=== PATIENT | female | born 1995 | race Caucasian/White ===

== ENCOUNTER → 2021-05-25 20:28 | Observation (INO) ==
[2021-05-25 20:25] LABS: Amorphous Sediment,Urine Few per hpf (None-Few); Bacteria,Urine Few per hpf (None-Few); Bilirubin,Urine Negative (Negative); Blood,Urine Negative (Negative); Clarity,Urine Clear (Clear); Color,Urine Colorless (Yellow); Glucose,Urine (UA) 150 mg/dL (Normal); Ketones,Urine Negative (Negative); Leukocyte Esterase,Urine Negative (Negative); Mucus,Urine Few per lpf (None-Few); Nitrite,Urine Negative (Negative); Protein,Urine Negative (Neg-Trace); RBC,Urine 0-3 per hpf (0-3); Squamous Epithelial Cell,Urine Few per hpf (None-Few); Urobilinogen,Urine Normal (Normal); WBC,Urine 0-3 per hpf (0-3)
== END | disposition home or self-care (01) ==
LOC: 1NENULAB
PROVIDERS: ADMIT Advanced Practice Midwife; ATTEND Advanced Practice Midwife

== ENCOUNTER 2021-08-02 22:15 | Inpatient (IN) ==
[~2021-08-02 22:15] MED LIST: *HR* Labetalol 20 MG/4 ML SYRINGE IVP ONE; *HR* Labetalol 20 MG/4 ML SYRINGE IVP PRN; *HR* Nalbuphine 10 MG/ML AMPUL IV PRN; Azithromycin 500 MG in 0.9 % Sodium Chloride 250 ML IVPB PRN; Famotidine 20 MG/2 ML VIAL IVP PRN; Lidocaine 1% 20 ML MDV INFILT PRN; Metoclopramide 10 MG/2 ML VIAL IVP PRN; Naloxone 0.4 MG/ML INJ IVP PRN; Ondansetron 4 MG/2 ML VIAL IVP PRN; Oxytocin 20 units/ LR 1000 mL 20 UNIT/1,000 ML BAG IVC SCH; Ringers Solution, Lactated 1,000 ML IVC ONE; Ringers Solution, Lactated 1,000 ML ONE
[2021-08-02 22:20] LABS: Basophils % 0.2 %; Bilirubin,Urine Negative (Negative); Blood,Urine Negative (Negative); Clarity,Urine Clear (Clear); Color,Urine Light-Yellow (Yellow); Eosinophils # 0.1 K/mcL (0.0-0.6); Eosinophils % 0.6 %; Glucose,Urine (UA) Normal (Normal); Hematocrit 33.3 % (35.3-44.9); Immature Granulocytes % 0.5 % (0-4); Ketones,Urine Negative (Negative); Leukocyte Esterase,Urine Negative (Negative); Lymphocytes # 2.4 K/mcL (0.6-4.6); Lymphocytes % 28.8 %; Mean Corpuscular Hemoglobin 30.7 pg (28.0-33.3); Mean Platelet Volume 12.7 fL (9.4-12.4); Monocytes # 0.9 K/mcL (0.0-1.3); Monocytes % 10.3 %; Neutrophils # 4.9 K/mcL (1.6-8.9); Nitrite,Urine Negative (Negative); PH,Urine 6.5 pH Units (5.0-8.0); Platelet Count 199 K/mcL (140-400); Protein,Urine Trace mg/dL (Neg-Trace); Red Blood Count 3.58 M/mcL (3.82-4.97); Red Cell Distribution Width 12.4 % (11.5-14.5); Segmented Neutrophils % 59.6 %; Specific Gravity,Urine 1.014 (1.010-1.025); Urobilinogen,Urine Normal (Normal); White Blood Count 8.2 K/mcL (4.3-11.1)
[2021-08-02 22:31] LABS: Creatinine,Urine 93 mg/dL; Protein/Creatinine Ratio,Urine 0.38 mg/mg (0.00-0.20)
[2021-08-02 22:41] LABS: Alanine Aminotransferase 6 Units/L (7-52); Aspartate Amino Transferase 11 Units/L (13-39); BUN/Creatinine Ratio 17 (6-26); Blood Urea Nitrogen 8 mg/dL (6-20); Lactate Dehydrogenase 144 Units/L (140-271); eGFR For African Americans > 60 (> 60); eGFR For Non-African Americans > 60 (> 60)
[2021-08-02 23:50] LABS: Influenza A PCR Negative (Negative); Influenza B PCR Negative (Negative); Resp. Syncytial Virus PCR Negative (Negative); SARS-CoV-2 by PCR (In House) Negative (Negative)
[2021-08-03] MEDS ORDERED: Ropivacaine/PF 0.2% 20 ML VIAL EP ONE (00:32)
[2021-08-03] MEDS ORDERED: *HR* FentaNYL (PF) 100 MCG/2 ML VIAL EP ONE (00:32)
[2021-08-03] MEDS ORDERED: EPHEDrine 50 MG/ML VIAL IVP PRN (00:32)
[2021-08-03] MEDS ORDERED: EPINEPHrine 1 MG/ML VIAL ONE (07:41)
[2021-08-03 09:42] LABS: Amphetamine Screen,Urine Negative ng/mL (Cutoff=1000); Barbiturate Screen,Urine Negative ng/mL (Cutoff=200); Benzodiazepines Screen,Urine Negative ng/mL (Cutoff=200); Cannabinoid Screen,Urine Negative ng/mL (Cutoff = 50); Cocaine Screen,Urine Negative ng/mL (Cutoff= 300); Opiate Screen,Urine Negative ng/mL (Cutoff=300); Phencyclidine Screen,Urine Negative ng/mL (Cutoff=25)
[2021-08-03] MEDS: Ringers Solution, Lactated 1,000 ML IVC SCH ×2 (10:20→14:45)
[2021-08-03] MEDS: Epidural Premix (fent/bupiv) 110 ML EP SCH ×2 (14:03→18:26)
[2021-08-04] MEDS ORDERED: Lanolin 7 G OINT...G. TP PRN (02:36)
[2021-08-04] MEDS ORDERED: Oxytocin 20 units/ LR 1000 mL 20 UNIT/1,000 ML BAG IVC ONE (02:36)
[2021-08-04] MEDS ORDERED: Oxytocin 20 units/ LR 1000 mL 20 UNIT/1,000 ML BAG IVC SCH (02:36)
[2021-08-04] MEDS ORDERED: Ondansetron ODT 4 MG TAB.RAPDIS SL PRN (02:36)
[2021-08-04] MEDS ORDERED: Measles/Mumps/Rubella Vacc 0.5 ML VIAL SQ PRN (02:36)
[2021-08-04] MEDS ORDERED: Rho Immune Globulin 1,500 UNIT SYRINGE IM PRN (02:36)
[2021-08-04] MEDS ORDERED: Benzocaine/Menthol 56 GM AEROSOL SPRAY TP PRN (02:36)
[2021-08-04] MEDS: Acetaminophen 325 MG TABLET PO SCH ×4 (02:53→20:08)
[2021-08-04] MEDS: Ibuprofen 600 MG TABLET PO SCH ×4 (02:53→20:08)
[2021-08-04] MEDS: Prenatal Vit/FA 1 EACH TABLET PO SCH (08:41)
[2021-08-04 09:39] LABS: Basophils % 0.2 %; Eosinophils # 0.1 K/mcL (0.0-0.6); Eosinophils % 0.9 %; Hematocrit 24.6 % (35.3-44.9); Immature Granulocytes % 0.2 % (0-4); Lymphocytes # 1.6 K/mcL (0.6-4.6); Lymphocytes % 16.5 %; Mean Corpuscular HGB Conc 33.7 g/dL (31.6-35.5); Mean Corpuscular Hemoglobin 31.1 pg (28.0-33.3); Mean Corpuscular Volume 92.1 fL (83.0-100.0); Mean Platelet Volume 12.8 fL (9.4-12.4); Monocytes # 0.8 K/mcL (0.0-1.3); Monocytes % 8.8 %; Neutrophils # 6.9 K/mcL (1.6-8.9); Platelet Count 141 K/mcL (140-400); Red Blood Count 2.67 M/mcL (3.82-4.97); Red Cell Distribution Width 12.5 % (11.5-14.5); Segmented Neutrophils % 73.4 %; White Blood Count 9.4 K/mcL (4.3-11.1)
[2021-08-04 09:42] LABS: Hemoglobin 8.3 g/dL (11.5-15.4)
[2021-08-05] MEDS: Acetaminophen 325 MG TABLET PO SCH ×2 (02:33→08:20)
[2021-08-05] MEDS: Ibuprofen 600 MG TABLET PO SCH ×2 (02:33→08:20)
[2021-08-05 08:08] VITALS: BP 139/99; PULSE 71; TEMP 97.5; O2SAT 99
[2021-08-05] MEDS: Prenatal Vit/FA 1 EACH TABLET PO SCH (08:20)
== END 2021-08-05 13:03 | disposition home or self-care (01) | DRG 807 ==
LOC: 1NENULAB → 1NENUOBS 08-04 02:38
PROVIDERS: ADMIT Obstetrics & Gynecology; ATTEND Obstetrics & Gynecology